=== PATIENT | female | born 1965 | race Caucasian/White ===

== ENCOUNTER 2018-10-28 15:20 | Emergency (ER) | payer BC ==
--- NOTE | 2018-10-28 16:25 | EDM.PDOC ---
ED HPI GENERAL MEDICAL PROBLEM - General Chief Complaint: Cardiovascular Problem Stated Complaint: HIGH BP Time Seen by Provider: 10/28/18 16:00 Source of Information: Reports: Patient, Old Records History Limitations: Reports: Other (patient sent to the ER without a call from the clinic, clinic when contacted stated they were worried about a heart attack , I told them this was all the more reason to give us a heads up call with office notes/labs/EKG's) - History of Present Illness INITIAL COMMENTS - FREE TEXT/NARRATIVE: 53 yo female has had fairly stable HTN on losartan for some time now. Starting last week she was found to have a significantly elevated BP along with some posterior neck and shoulder discomfort. Feels like she can feel her pulse in the back of her neck. States BP at home has been pretty labile from high to low. Had HCTZ added a week ago for her elevated BP. Last week an EKG and labs were done in the clinic that showed normal results except for a total chol of 242 and LDL of 142. BP in the clinic today after a very brief rest was 170/110, it was later 147/79 upon arrival in the ER a few minutes later(patient is feeling better now). Onset: Gradual Duration: Week(s):, Waxing/Waning Location: Reports: Neck, Back (upper) Quality: Reports: Dull Severity: Mild Improves with: Reports: Other (seems better when BP is lower) Worsens with: Reports: Other (BP elevation) Context: Reports: Other (see HPI) Associated Symptoms: Reports: No Other Symptoms. Denies: Chest Pain, Shortness of Breath Treatments SUPPLY CHAIN INTERN: Reports: Other (see below) (none) Neck Pain Score (Numeric/FACES): 4 - Related Data Allergies Allergy/AdvReac Type Severity Reaction Status Date / Time No Known Allergies Allergy Verified 04/03/18 07:22 Home Meds: Home Meds Fluticasone Propionate 1 sprays IH DAILY 12/29/14 [History] Polyethylene Glycol 3350 17 gm PO DAILY 12/29/14 [History] Sennosides/Docusate Sodium [Sennosides-Docusate Sodium] 3 each PO DAILY [History] Ketoconazole [Nizoral] 120 ml TP ASDIRECTED 04/01/18 [History] Losartan [Cozaar] 50 mg PO DAILY 04/01/18 [History] valACYclovir HCl [Valacyclovir] 2,000 mg PO BID PRN 04/01/18 [History] Aspirin 81 mg PO DAILY 10/28/18 [History] Venlafaxine [Effexor] 37.5 mg PO DAILY 10/28/18 [History] hydroCHLOROthiazide [Hydrochlorothiazide] 25 mg PO DAILY 10/28/18 [History] Past Medical History HEENT History: Reports: Impaired Vision Cardiovascular History: Reports: Heart Murmur, Hypertension Gastrointestinal History: Reports: Chronic Constipation, Colon Polyp, GERD Genitourinary History: Reports: None 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: Fibroids, , Spontaneous Musculoskeletal History: Reports: Fracture, Osteoarthritis Endocrine/Metabolic History: Reports: Obesity/BMI 30+ Oncologic (Cancer) History: Reports: Basal Cell Carcinoma Dermatologic History: Reports: Psoriasis - Infectious Disease History Infectious Disease History: Reports: Chicken Pox - Past Surgical History HEENT Surgical History: Reports: Oral Surgery Cardiovascular Surgical History: Reports: None GI Surgical History: Reports: Colonoscopy Female Surgical History: Reports: D&C Endocrine Surgical History: Reports: None Musculoskeletal Surgical History: Reports: None Oncologic Surgical History: Reports: None Dermatological Surgical History: Reports: Skin Biopsy Social & Family History - Tobacco Use Smoking Status *Q: Never Smoker - Caffeine Use Caffeine Use: Reports: Coffee Caffeine Use Comment: 1-2 cups/day - Recreational Drug Use Recreational Drug Use: No ED ROS GENERAL - Review of Systems Review Of Systems: See Below Constitutional: Reports: No Symptoms HEENT: Reports: No Symptoms Respiratory: Reports: No Symptoms Cardiovascular: Reports: No Symptoms Endocrine: Reports: No Symptoms GI/Abdominal: Reports: No Symptoms : Reports: No Symptoms Musculoskeletal: Reports: Neck Pain (posterior neck), Back Pain (upper) Skin: Reports: No Symptoms Neurological: Reports: No Symptoms Psychiatric: Reports: No Symptoms ED EXAM, GENERAL - Physical Exam Exam: See Below Exam Limited By: No Limitations General Appearance: Alert, WD/WN, No Apparent Distress, Obese Eye Exam: Bilateral Eye: Normal Inspection Ears: Normal External Exam, Normal Canal, Hearing Grossly Normal, Normal TMs Ear Exam: Bilateral Ear: Auricle Normal, Canal Normal Nose: Normal Inspection, No Blood Throat/Mouth: Normal Inspection, Normal Lips, Normal Oropharynx, Normal Voice, No Airway Compromise Head: Atraumatic, Normocephalic Neck: Normal Inspection Respiratory/Chest: No Respiratory Distress, Lungs Clear, Normal Breath Sounds, No Accessory Muscle Use Cardiovascular: Regular Rate, Rhythm, No Edema GI/Abdominal: Soft, Non-Tender Back Exam: Normal Inspection. No: CVA Tenderness (R), CVA Tenderness (L) Extremities: Normal Inspection, Normal Range of Motion, Non-Tender, No Pedal Edema Neurological: Alert, Oriented, CN II-XII Intact, Normal Cognition, No Motor/ Sensory Deficits Psychiatric: Normal Affect, Normal Mood Skin Exam: Warm, Dry, Intact, Normal Color, No Rash Course - Vital Signs Last Recorded V/S: Last Vital Signs Temp 37.3 C 10/28/18 15:48 Pulse 90 10/28/18 17:28 Resp 16 10/28/18 17:28 BP 137/83 10/28/18 17:28 Pulse Ox 95 10/28/18 17:28 - Orders/Labs/Meds Labs: Laboratory Tests 10/28/18 10/28/18 Range/Units 16:27 17:04 Sodium 140 (140-148) mmol/L Potassium 3.0 L (3.6-5.2) mmol/L Chloride 100 (100-108) mmol/L Carbon Dioxide 30 (21-32) mmol/L Anion Gap 13.0 (5.0-14.0) mmol/L BUN 9 (7-18) mg/dL Creatinine 0.9 (0.6-1.0) mg/dL Est Cr Clr Drug Dosing 64.30 mL/min Estimated GFR (MDRD) > 60 (>60) Glucose 109 H (74-106) mg/dL Calcium 9.4 (8.5-10.1) mg/dL Magnesium 1.8 (1.8-2.4) mg/dL Troponin I < 0.017 (0.000-0.056) ng/mL Meds: Medications Discontinued Medications Generic Name Dose Route Start Last Admin Trade Name Freq PRN Reason Stop Dose Admin Potassium Chloride 40 meq 10/28/18 17:04 10/28/18 17:18 Potassium Chloride PO 10/28/18 17:05 40 meq ONETIME ONE Administration Departure - Departure Time of Disposition: 17:55 Disposition: Home, Self-Care 01 Condition: Fair Clinical Impression: HTN, goal below 130/80, Hypokalemia Clinical Impression: (Ruled Out): Hyponatremia Instructions: Hypokalemia, Managing Your Hypertension Referrals: Marjorie Neely CNM [Primary Care Provider] - Forms: ED Department Discharge Additional Instructions: Avoid salt or salty foods. Eat ample amts of fresh fruits and vegetables. Increase your losartan to 100 mg daily. Continue your HTCZ. Add potassium 20 meq twice daily for 3 days, then once daily until seen. Recheck in the clinic of your BP and potassium by Saturday of this week if possible. Return if worse.
[2018-10-28] MEDS ORDERED: Potassium Chloride 10 MEQ Cap.ER PO ONE (17:04)
[2018-10-28 17:28] VITALS: BP 137/83; PULSE 90
== END 2018-10-28 18:12 | disposition home or self-care (01) ==
LOC: JP.ED 15:20
DX: I10 Essential (primary) hypertension (principal); E87.6 Hypokalemia; K21.9 Gastro-esophageal reflux disease without esophagitis; E66.9 Obesity, unspecified; Z68.34 Body mass index [BMI] 34.0-34.9, adult; Z79.899 Other long term (current) drug therapy; Z79.82 Long term (current) use of aspirin
CPT/HCPCS: 36415; 80048; 83735; 84484; 99283; A9270

== ENCOUNTER 2024-02-12 12:36 | Emergency (ER) | payer BC ==
[2024-02-12 13:55] LABS: BASOPHILS ABSOLUTE AUTO 0.05 K/uL (0.00-0.10); BASOPHILS PERCENT AUTO 0.8 % (0.1-1.3); EOSINOPHILS ABSOLUTE AUTO 0.11 K/uL (0.00-0.40); EOSINOPHILS PERCENT AUTO 1.9 % (0.0-5.4); HEMATOCRIT 41.3 % (34.3-46.0); HEMOGLOBIN 14.3 g/dL (11.2-15.5); IMMATURE GRAN ABSOLUTE AUTO 0.03 K/uL (0.00-0.23); IMMATURE GRAN PERCENT AUTO 0.5 % (0.0-0.7); LYMPHOCYTES PERCENT AUTO 30.4 % (11.4-47.7); MEAN CORPUSCULAR HEMOGLOBIN 31.4 pg (31.6-35.5); MEAN CORPUSCULAR HGB CONC 34.6 g/dL (31.6-35.5); MEAN CORPUSCULAR VOLUME 90.6 fL (81.4-99.0); MONOCYTES PERCENT AUTO 8.4 % (3.3-12.6); NEUTROPHILS ABSOLUTE AUTO 3.44 K/uL (1.0-7.6); PLATELET COUNT,PLT 251 K/uL (130-375); RED BLOOD CELL COUNT 4.56 M/uL (3.77-5.24); WHITE BLOOD CELL COUNT,WBC 5.9 K/uL (3.2-11.0)
[2024-02-12] MEDS: cloNIDine 0.1 MG Tab PO ONE (13:56)
[2024-02-12 14:01] LABS: BASE EXCESS VENOUS 2.9 mm/L; BICARBONATE,VENOUS 27.1 mmol/L; CARBOXYHEMOGLOBIN 1.9 % (0.0-1.6); O2 SATURATION VENOUS 75.7; OXYHEMOGLOBIN 73.5 %; PCO2 VENOUS 41.9 mm/Hg; PH,VENOUS 7.426 (7.350-7.450); TOTAL HEMOGLOBIN 14.9 g/dL (12.0-16.0)
[2024-02-12 14:23] LABS: A/G RATIO 1.1 (1.2-2.2); ALANINE AMINOTRANSFERASE,ALT 36 U/L (12-78); ALBUMIN 4.1 g/dL (3.4-5.0); ALKALINE PHOSPHATASE 70 U/L (46-116); ANION GAP 12.4 mmol/L (5.0-14.0); ASPARTATE AMNIOTRANSFERASE,AST 22 U/L (15-37); BILIRUBIN TOTAL 0.7 mg/dL (0.2-1.0); BLOOD UREA NITROGEN,BUN 14 mg/dL (7-18); CALCIUM 10.1 mg/dL (8.5-10.1); CARBON DIOXIDE,CO2 26 mmol/L (21-32); CHLORIDE,CL 102 mmol/L (100-108); CREATININE 0.9 mg/dL (0.6-1.0); EST CRCL DRUG DOSING (CG) 58.12 mL/min; ESTIMATED GFR 74 mL/min (>60); GLUCOSE RANDOM 91 mg/dL (74-106); POTASSIUM,K 3.9 mmol/L (3.6-5.2); PROTEIN TOTAL,TP 7.9 g/dL (6.4-8.2); SODIUM,NA 140 mmol/L (140-148); TROPONIN I HIGH SENSITIVITY < 4.0 pg/mL (<=60.3)
[2024-02-12] MEDS: LORazepam 1 MG Tab PO ONE (14:44)
[2024-02-12 15:57] LABS: APPEARANCE,URINE CLEAR (CLEAR); BILIRUBIN,URINE NEGATIVE (NEGATIVE); COLOR,URINE YELLOW (YELLOW); GLUCOSE,URINE NEGATIVE (NEGATIVE); KETONES,URINE NEGATIVE (NEGATIVE); LEUKOCYTE ESTERASE,URINE NEGATIVE (NEGATIVE); NITRITE,URINE NEGATIVE (NEGATIVE); OCCULT BLOOD,URINE NEGATIVE (NEGATIVE); PROTEIN,URINE NEGATIVE (NEGATIVE); UROBILINOGEN,URINE 0.2 EU/dL (0.2-1.0)
[2024-02-12 16:01] LABS: AMORPHOUS SEDIMENT,URINE NOT SEEN; BACTERIA,URINE RARE; EPITHELIAL CELLS,URINE RARE; MUCUS,URINE RARE; RBC,URINE 0-5 (0-5); WBC,URINE 0-5 (0-5)
[2024-02-12] MEDS: Iopamidol 755 Mg/ML 100 ML Bottle IV SCH (16:17)
[2024-02-12] MEDS: Sodium Chloride 0.9% 100 ML IV SCH (16:17)
[2024-02-12] MEDS: Sodium Chloride 0.9% 10 ML Syringe FLUSH PRN (16:17)
[2024-02-12 17:05] VITALS: BP 126/76; PULSE 78
== END 2024-02-12 17:44 | disposition home or self-care (01) ==
LOC: JP.ED 12:36
DX: I10 Essential (primary) hypertension (principal); F41.9 Anxiety disorder, unspecified; K21.9 Gastro-esophageal reflux disease without esophagitis; E66.9 Obesity, unspecified; Z79.899 Other long term (current) drug therapy; Z79.891 Long term (current) use of opiate analgesic; Z68.37 Body mass index [BMI] 37.0-37.9, adult
CPT/HCPCS: 36415; 71275; 80053; 81001; 82803; 83735; 84484; 85025; 85379; 93005; 93010; 93970; 99284; A9270; J3490; Q9967